=== PATIENT | male | born 1995 | race Caucasian/White ===

== ENCOUNTER 2019-05-15 16:32 | Inpatient (IN) | payer OTHER ==
[2019-05-15 18:27] VITALS: BMI 27.8
--- NOTE | 2019-05-15 20:32 | HP ---
CIWA Score - Admission Criteria OASAS Guidelines: Admission for Medically Managed Detox: Requires at least one of the followin. CIWA greater than 12 2. Seizures within the past 24 hours 3. Delirium tremens within the past 24 hours 4. Hallucinations within the past 24 hours 5. Acute intervention needed for co occurring medical disorder 6. Acute intervention needed for co occurring psychiatric disorder 7. Severe withdrawal that cannot be handled at a lower level of care (continued vomiting, continued diarrhea, abnormal vital signs) requiring intravenous medication and/or fluids 8. Admission ROS S - HPI Chief Complaint: Seeking admission to detox from heroin, crack and cocaine Allergies/Adverse Reactions: Allergies Allergy/AdvReac Type Severity Reaction Status Date / Time No Known Allergies Allergy Verified 05/15/19 18:14 History of Present Illness: 23 years old male with three years of crack and cocaine use and initial attempt of heroin is seeking admission to Rehab. Patient reports that he spent four days at [facility] for heroin overdose and consequent detoxification. This was his first time of using heroin and he overdosed. He reports history of depression, ADHD and suicide attempt in 2018. He denies suicidal ideation at this time. Patient reports that he is unemployed and lives with his parents. Exam Limitations: No Limitations - Ebola screening Have you traveled outside of the country in the last 21 days: No (N) Have you had contact with anyone from an Ebola affected area: No Do you have a fever: No - Review of Systems Constitutional: No Symptoms Reported EENT: reports: No Symptoms Reported Respiratory: reports: No Symptoms reported Cardiac: reports: No Symptoms Reported GI: reports: No Symptoms Reported : reports: No Symptoms Reported Musculoskeletal: reports: No Symptoms Reported Integumentary: reports: No Symptoms Reported Neuro: reports: No Symptoms reported Endocrine: reports: No Symptoms Reported Hematology: reports: No Symptoms Reported Psychiatric: reports: Mood/Affect Appropiate, Orientated x3 Other Systems: Reviewed and Negative Patient History - Patient Medical History Hx Anemia: No Hx Asthma: No Hx Chronic Obstructive Pulmonary Disease (COPD): No Hx Cancer: No Hx Cardiac Disorders: No Hx Congestive Heart Failure: No Hx Hypertension: No Hx Hypercholesterolemia: No Hx Pacemaker: No HX Cerebrovascular Accident: No Hx Seizures: No Hx Diabetes: No Hx Gastrointestinal Disorders: No Hx Liver Disease: No Hx Genitourinary Disorders: No Hx Sexually Transmitted Disorders: No Hx Renal Disease (ESRD): No Hx Thyroid Disease: No Hx Human Immunodeficiency Virus (HIV): No (Negative 2018) Hx Hepatitis C: No Hx Depression: Yes (Wellbutrin, Prozac) Hx Suicide Attempt: Yes (Attempt in 2018 (cutting wrist). Denies suicidal ideation at this time) Hx Bipolar Disorder: No Hx Schizophrenia: No - Patient Surgical History Past Surgical History: No - PPD History Previous Implant?: Yes Documented Results: Negative w/o proof Implanted On Prior R Admission?: No PPD to be Administered?: Yes - Reproductive History Patient is a Female of Child Bearing Age (11 -55 yrs old): No (Male) - Smoking Cessation Smoking history: Current every day smoker Have you smoked in the past 12 months: Yes Aproximately how many cigarettes per day: 7 Hx Chewing Tobacco Use: No Initiated information on smoking cessation: Yes 'Breaking Loose' booklet given: 05/15/19 - Substance & Tx. History Hx Alcohol Use: No Hx Substance Use: Yes Substance Use Type: Cocaine, Heroin, Marijuana Hx Substance Use Treatment: Yes ([facility]) - Substances abused Heroin Substance route: Smoking Frequency: 1-2 times per week Amount used: 1 bag Age of first use: 23 Date of last use: 05/12/19 Crack Other (specify): cocaine Substance route: Smoking Frequency: Daily Amount used: 2 grams Age of first use: 20 Date of last use: 05/12/19 Family Disease History - Family Disease History Family History: Denies Admission Physical Exam BHS - Vital Signs Vital Signs: Vital Signs - 24 hr 05/15/19 05/15/19 18:13 18:50 Temperature 99.7 F H 99.7 F H Pulse Rate 67 67 Respiratory 18 18 Rate Blood Pressure 138/94 138/94 - Physical General Appearance: Yes: No Apparent Distress HEENTM: Yes: EOMI, Normal ENT Inspection, Normal Voice Respiratory: Yes: Lungs Clear, Normal Breath Sounds, No Respiratory Distress Neck: Yes: Supple Breast: Yes: Breast Exam Deferred Abdominal: Yes: Normal Bowel Sounds Genitourinary: Yes: Within Normal Limits Back: Yes: Normal Inspection Musculoskeletal: Yes: Within Normal Limits Extremities: Yes: Normal Inspection Neurological: Yes: Alert, Normal Mood/Affect Integumentary: Yes: Warm, Petechiae - Diagnostic (1) Heroin dependence Current Visit: Yes Status: Chronic (2) Cocaine dependence Current Visit: Yes Status: Chronic Qualifiers: Substance use status: uncomplicated Qualified Code(s): F14.20 - Cocaine dependence, uncomplicated (3) Marijuana dependence Current Visit: Yes Status: Chronic (4) Nicotine dependence Current Visit: Yes Status: Chronic Qualifiers: Nicotine product type: cigarettes Substance use status: uncomplicated Qualified Code(s): F17.210 - Nicotine dependence, cigarettes, uncomplicated (5) Depression Current Visit: Yes Status: Chronic Qualifiers: Depression Type: major depressive disorder Cleared for Admission S - Detox or Rehab [facility] Level of Care: Observation Bed Claeared for Rehab Admission: Yes Breathalyzer - Breathalyzer Breathalyzer: 0 Urine Drug Screen - Test Device Lot number: [id number] Expiration date: 02/19/21 - Control Is test valid?: Yes - Results Drug screen NEGATIVE: No Urine drug screen results: THC-Marijuana, ALEJANDRO-Cocaine Inpatient Rehab Admission - Rehab Decision to Admit Inpatient rehab admission?: Yes - Initial Determination Are CD services needed?: No Free of communicable disease: Yes Not in need of hospitalization: Yes - Rehab Admission Criteria Previous failed treatment: Yes Poor recovery environment: Yes Comorbidities: Yes Lacks judgement: No Patient is meeting Inpatient Rehab admission criteria:: Yes
[2019-05-15] MEDS ORDERED: LOPERAMIDE HCL 2 MG CAPSULE PO PRN (20:40)
[2019-05-15] MEDS ORDERED: P-EPHED 60MG/TRIPROLIDI 2.5MG TABLET PO PRN (20:40)
[2019-05-15] MEDS ORDERED: MAG HYDROX/AL HYDROX/SIMETH 30 ML UNIT-DOSE CUP PO PRN (20:40)
[2019-05-15] MEDS ORDERED: MAGNESIUM HYDROX 2400MG/30ML ORAL SUSPENSION 30 ML CUP PO PRN (20:40)
[2019-05-15] MEDS ORDERED: ACETAMINOPHEN 325 MG TABLET (FP) PO PRN (20:40)
[2019-05-15] MEDS ORDERED: MAGNESIUM CITRATE 300 ML BOTTLE PO PRN (20:40)
[2019-05-15] MEDS ORDERED: guaiFENesin 200 MG/10 ML 10 ML UNIT-DOSE CUPS PO PRN (20:40)
[2019-05-15] MEDS ORDERED: IBUPROFEN 400 MG TABLET (FP) PO PRN (20:40)
[2019-05-15] MEDS ORDERED: NICOTINE POLACRILEX 2 MG GUM BC PRN (20:40)
[2019-05-15] MEDS ORDERED: MENTHOL/PHENOL 1 EACH UD MM PRN (20:40)
[2019-05-15] MEDS ORDERED: COLLOIDAL OATMEAL 1 BAR EACH TP PRN (20:53)
[2019-05-15] MEDS: BACITRACIN 0.9 GM PACKET TP SCH (23:29)
[2019-05-15] MEDS: THIAMINE HCL 100 MG TABLET (FP) PO SCH (23:29)
[2019-05-16] MEDS: PRENATAL VITAMINS W/ FOLIC ACID TABLET (FP) PO SCH (10:44)
[2019-05-16] MEDS: NICOTINE 14 MG/24 HOURS TOPICAL PATCH TD SCH (10:45)
[2019-05-16] MEDS: BACITRACIN 0.9 GM PACKET TP SCH ×2 (10:45→22:10)
--- NOTE | 2019-05-16 14:41 | EKG ---
Test Reason : Blood Pressure : / mmHG Vent. Rate : 047 BPM Atrial Rate : 047 BPM P-R Int : 148 ms QRS Dur : 090 ms QT Int : 492 ms P-R-T Axes : 029 041 009 degrees QTc Int : 435 ms SINUS BRADYCARDIA ABNORMAL ECG NO PREVIOUS ECGS AVAILABLE Confirmed by KAYA TIM MD ([id number]) on 05/16/2019 2:40:47 PM Referred By: Confirmed By:KAYA TIM MD
[2019-05-16 14:45] LABS: HEMATOCRIT 42.2 % (35.4-49); HEMOGLOBIN 14.8 GM/dL (11.7-16.9); MCH 31.2 pg (25.7-33.7); MCHC 35.2 g/dl (32.0-35.9); MEAN CELL VOLUME 88.8 fl (80-96); MEAN PLT VOLUME 8.8 fl (7.5-11.1); PLATELET COUNT 267 K/MM3 (134-434); RBC 4.75 M/mm3 (4.00-5.60); RDW 12.1 % (11.9-15.9); WHITE BLOOD COUNT 5.7 K/mm3 (4.0-10.0)
[2019-05-16 14:53] LABS: ALBUMIN 3.6 g/dl (3.4-5.0); BILIRUBIN,TOTAL 0.6 mg/dL (0.2-1); CALCIUM 9.6 mg/dL (8.5-10.1); CREATININE 1.3 mg/dL (0.55-1.3); POTASSIUM 4.1 mmol/L (3.5-5.1)
--- NOTE | 2019-05-16 18:49 | CONSULT ---
[facility] Psychiatric Consult - Data Date of interview: 05/16/19 Admission source: [facility] Identifying data: Direct admission to [address] and first visit to [facility] for this 23 y/o male, a referral from [facility] (treated for accidental heroin overdose) for rehabilitative care (after detoxification at [facility]) to address substance use disorders (heroin, cocaine, nicotine) co-morbid with MDD + ADHD. Patient is single, no children, domiciled ( lives with parents), unemployed and dependent on his parents for financial support. Substance Abuse History: Confirmed by patient in this interview. Details in current [facility] report as follows : Smoking history: Current every day smoker. Have you smoked in the past 12 months: Yes. Aproximately how many cigarettes per day: 7. Hx Chewing Tobacco Use: No. Initiated information on smoking cessation: Yes. 'Breaking Loose' booklet given: 05/15/19. - Substance & Tx. History. Hx Alcohol Use: No. Hx Substance Use: Yes. Substance Use Type: Cocaine, Heroin, Marijuana. Hx Substance Use Treatment: Yes ([facility], [place]). - Substances abused. Heroin. Substance route: Smoking. Frequency: 1-2 times per week. Amount used: 1 bag. Age of first use : 23. Date of last use: 05/12/19. Crack. Other (specify): cocaine. Substance route: Smoking. Frequency: Daily. Amount used: 2 grams. Age of first use: 20. Date of last use: 05/12/19 Medical History: Patient endorses good general health. Psychiatric History: Patient denies history of psychiatric hospitalizations. Mr Zavala endorses the diagnoses of MDD and ADHD. Addressed with a regimentn of wellbutrin XL 300 mg/day + prozac 60 mg/day + guanfacine 4 mg/day. The patient is currently under the care of private psychiatrist in [facility]. Denies history of suicide attempts. Physical/Sexual Abuse/Trauma History: Patient denies. Additional Comment: Urine drug screen results: THC-Marijuana, ALEJANDRO-Cocaine. Noted. Mental Status Exam - Mental Status Exam Alert and Oriented to: Time, Place, Person Cognitive Function: Good Patient Appearance: Well Groomed Mood: Sad, Nervous, Withdrawn Affect: Mood Congruent, Constricted Patient Behavior: Fatigued, Appropriate, Cooperative Speech Pattern: Clear, Appropriate Voice Loudness: Mildly Soft/Quiet Thought Process: Intact, Goal Oriented Thought Disorder: Not Present Hallucinations: Denies Suicidal Ideation: Denies Homicidal Ideation: Denies Insight/Judgement: Fair Sleep: Well Appetite: Good Muscle strength/Tone: Normal Gait/Station: Other (not observed; in bed for entire length of interview) Psychiatric Findings - Problem List ([place] 1, 2,3) (1) Cocaine dependence Current Visit: Yes Status: Chronic Qualifiers: Substance use status: uncomplicated Qualified Code(s): F14.20 - Cocaine dependence, uncomplicated (2) Heroin dependence Current Visit: Yes Status: Chronic (3) Marijuana dependence Current Visit: Yes Status: Chronic (4) Nicotine dependence Current Visit: Yes Status: Chronic Qualifiers: Nicotine product type: cigarettes Substance use status: uncomplicated Qualified Code(s): F17.210 - Nicotine dependence, cigarettes, uncomplicated (5) MDD (major depressive disorder) Current Visit: Yes Status: Chronic (6) History of ADHD Current Visit: Yes Status: Chronic - Initial Treatment Plan Initial Treatment Plan: Psychoeducation. Sleep hygiene. Support. NA meetings. Groups. Relapse prevention (MAT) for discussion with patient. Resume prozac 60 mg po daily + wellbutrin XL 300 mg po daily. Side effects/benefits of both drugs are discussed with patient. Mr Zavala gave verbal consent for this plan of care. Observation.
[2019-05-16] MEDS: THIAMINE HCL 100 MG TABLET (FP) PO SCH (22:10)
[2019-05-17] MEDS ORDERED: FLUoxetine HCL 20 MG CAPSULE (FP) PO SCH (10:00)
[2019-05-17] MEDS: PRENATAL VITAMINS W/ FOLIC ACID TABLET (FP) PO SCH (10:43)
[2019-05-17] MEDS: BACITRACIN 0.9 GM PACKET TP SCH ×2 (10:44→22:14)
[2019-05-17] MEDS: NICOTINE 14 MG/24 HOURS TOPICAL PATCH TD SCH (10:44)
[2019-05-17] MEDS: THIAMINE HCL 100 MG TABLET (FP) PO SCH (22:14)
[2019-05-18] MEDS: BACITRACIN 0.9 GM PACKET TP SCH ×2 (10:42→21:38)
[2019-05-18] MEDS: NICOTINE 14 MG/24 HOURS TOPICAL PATCH TD SCH (10:42)
[2019-05-18] MEDS: PRENATAL VITAMINS W/ FOLIC ACID TABLET (FP) PO SCH (10:42)
[2019-05-18] MEDS ORDERED: ONDANSETRON *ODT* 4 MG TABLET SL PRN (13:24)
--- NOTE | 2019-05-18 13:34 | PN ---
[facility] Progress Note Note: Patient with 1 episode of vomiting, vomitus not witnessed by staff. As per patient, he has been having nausea on and off until today that he vomited. He was admitted on 05/15 for rehab services. He denies fever or chills, he denies abdominal pain. PE Abdomen is soft, BS x 4, NT,ND A/P N/V-Zofran 8mg PO Q 8hrs as needed Monitoring ongoing
[2019-05-18] MEDS ORDERED: hydrOXYzine PAMOATE 50 MG CAPSULE (FP) PO PRN (13:57)
--- NOTE | 2019-05-18 19:59 | PN ---
[facility] Progress Note Note: Psychiatry Attending's note : Records from [facility] : reviewed. Medications confirmed. Resumed : prozac 60 mg po daily. Mr Zavala declines scripts from [facility]. Noted script for 30 days from [facility] at his discharge on 05/14/29. Informed consent (verbal) given to functional tester typewriters.
[2019-05-18] MEDS: THIAMINE HCL 100 MG TABLET (FP) PO SCH (21:38)
[2019-05-18] MEDS: MELATONIN 5 MG TABLETS PO PRN (21:38)
[2019-05-19] MEDS ORDERED: FLUoxetine HCL 20 MG CAPSULE (FP) PO SCH (10:00)
[2019-05-19] MEDS: BACITRACIN 0.9 GM PACKET TP SCH ×2 (10:55→21:35)
[2019-05-19] MEDS: PRENATAL VITAMINS W/ FOLIC ACID TABLET (FP) PO SCH (10:55)
[2019-05-19] MEDS: NICOTINE 14 MG/24 HOURS TOPICAL PATCH TD SCH (10:55)
--- NOTE | 2019-05-19 15:08 | DS ---
[facility] Detox Discharge Summary Admission Date: 05/15/19 - Physical Exam Results Vital Signs: Vital Signs Temperature 98.0 F 05/19/19 07:26 Pulse Rate 76 05/19/19 07:26 Respiratory Rate 18 05/19/19 07:26 Blood Pressure 137/74 05/19/19 07:26 O2 Sat by Pulse Oximetry (%) - Treatment Hospital Course: Responded well - Medication Discharge Medications: Ambulatory Orders Fluoxetine HCl 60 mg PO DAILY 05/15/19 Guanfacine HCl [Guanfacine HCl ER] 4 mg PO DAILY 05/15/19 Nicotine Polacrilex [Nicotine Gum] 2 mg PO QID 05/15/19 Bupropion HCl [Bupropion Xl] 300 mg PO DAILY #30 tab.er.24h 05/19/19 Fluoxetine HCl [Prozac -] 60 mg PO DAILY #90 capsule 05/19/19 - Diagnosis (1) Cocaine dependence Current Visit: Yes Status: Chronic Qualifiers: Substance use status: uncomplicated Qualified Code(s): F14.20 - Cocaine dependence, uncomplicated (2) Marijuana dependence Current Visit: Yes Status: Chronic (3) Nicotine dependence Current Visit: Yes Status: Chronic Qualifiers: Nicotine product type: cigarettes Substance use status: uncomplicated Qualified Code(s): F17.210 - Nicotine dependence, cigarettes, uncomplicated - AMA Did Patient Leave Against Medical Advice: No
--- NOTE | 2019-05-19 16:02 | PN ---
[facility] Progress Note Note: Patient is scheduled for discharged tomorrow. Scripts for 30 days supply of medications(Prozac 60 mg/day, Wellbutrin XL 300 mg/day) will be electronically transmitted to [facility] at [address] [place], [place] [id number]
[2019-05-19] MEDS: MELATONIN 5 MG TABLETS PO PRN (21:35)
[2019-05-19] MEDS: THIAMINE HCL 100 MG TABLET (FP) PO SCH (21:36)
[2019-05-20 07:12] VITALS: BP 130/78; PULSE 86; TEMP 98.1
== END 2019-05-20 07:25 | disposition home or self-care (01) | DRG 772 ==
LOC: YASAS 16:32 → Y5N 22:04
PROVIDERS: ADMIT Neuromusculoskeletal Medicine & OMM; ATTEND Neuromusculoskeletal Medicine & OMM
PROC: HZ42ZZZ Group Counseling for Substance Abuse Treatment, Cognitive-Behavioral (ICD-10-PCS; principal; 2019-05-15)
DX: F11.20 Opioid dependence, uncomplicated (principal); F14.20 Cocaine dependence, uncomplicated; F12.20 Cannabis dependence, uncomplicated; F17.210 Nicotine dependence, cigarettes, uncomplicated; F32.9 Major depressive disorder, single episode, unspecified; Z91.5 Personal history of self-harm
CPT/HCPCS: 36415; 80053; 85027; 86480; 86593; 93005; 93010; Q0162